=== PATIENT | male | born 1930 ===

== ENCOUNTER 2016-10-08 09:00 | Day surgery (SDC) | payer OTHER ==
[2016-10-08] MEDS ORDERED: Midazolam 2 MG/2 ML VIAL ONE (15:23)
--- NOTE | 2016-10-08 16:34 | CATH ---
APPROVED REPORT Procedure(s) performed: Left Heart Catheterization Left Ventriculogram Selective Right and Left Coronary Angiography Right Iliac and femoral artery angio Angioseal deployment HISTORY The patient is a 86 year-old male with a history of : diabetes mellitus with oral and insulin treatment, hypertension, dyslipidemia, family history of premature CAD. INDICATION The indication(s) include : positive stress test, murmur, chest pain, abnormal ECG, peripheral edema, dyspnea, valvular heart disease. CASE TECHNIQUE The patient was brought electively to the Cardiac Catheterization Laboratory in a fasting state and was prepped and draped in a sterile manner. The right femoral groin was infiltrated with 2% Lidocaine subcutaneous anesthesia. A 6 maldivian sheath was inserted into the right femoral artery without difficulty. Coronary angiography was performed using coronary diagnostic catheters. The left coronary system was accessed and visualized with a Diagnostic catheter. The right coronary system was accessed and visualized with a Diagnostic catheter. The left ventricle was accessed and visualized with a Diagnostic catheter. Left ventricular/Aortic Valve gradient assessed on pullback. Left ventriculogram was performed in MIX projection. Pre-demployment femoral angiogram was performed . Closure device was deployed with a Fr Angioseal without any complications. The patient tolerated the procedure well and there were no complications associated with the procedure. Vessel Analysis The patient's coronary anatomy is right dominant. The left main coronary artery is a medium size vessel without stenosis. The left main trifurcates to the left anterior descending, circumflex, and ramus. The left anterior descending artery is a medium size vessel with intimal irregularities and without significant stenosis. The first diagonal branch is a small size vessel without stenosis. The second diagonal branch is a small size vessel with stenosis. There is a 50% stenosis in the ostial segment. The circumflex artery is a large size vessel without stenosis. The first obtuse marginal branch is a small size vessel without stenosis. The ramus intermedius artery is a medium size vessel with stenosis. There is a 20% stenosis in the ostial segment. The right coronary artery is a large size vessel with stenosis. There is a 40% stenosis in the proximal segment. The right posterior descending artery is a small size vessel without stenosis. The right posterolateral branch is a large size vessel without stenosis. Left Ventricle The left ventricle is normal in size with normal contractility. The left ventricular ejection fraction is estimated to be 75%. The left ventricular end diastolic pressure is 17 mmHg. There was no gradient across the aortic valve upon pullback. 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 NORMAL EF MIN ELEVATED LVEDP NO EVIDENCE OF MILD MR Recommendations Aggressive Medical Therapy Weight Loss Reduction ProgramMedical Therapy
[2016-10-08 16:38] VITALS: BMI 32.8
[2016-10-08] MEDS ORDERED: Sodium Chloride 0.45% 1,000 ML IV ONE (16:57)
[2016-10-08 18:25] VITALS: BP 124/48; PULSE 64; RESP 12; TEMP 97.4; O2SAT 96
== END 2016-10-08 17:55 | disposition home or self-care (01) ==
LOC: C.CATHLAB 09:00
PROVIDERS: ATTEND Internal Medicine Cardiovascular Disease
DX: I25.10 Atherosclerotic heart disease of native coronary artery without angina pectoris (principal); I34.0 Nonrheumatic mitral (valve) insufficiency; R07.9 Chest pain, unspecified; R60.9 Edema, unspecified; R06.00 Dyspnea, unspecified
CPT/HCPCS: 82948; 93452; J0360; J1644; J2250; J3010; J7030; Q9967

== ENCOUNTER 2016-10-08 09:02 | Day surgery (SDC) | payer OTHER ==
[2016-10-03 10:25] VITALS: BMI 32.9
[2016-10-08] MEDS ORDERED: Lidocaine 4% (Laryng-O-Jet) Kit MM ONE (09:43)
[2016-10-08] MEDS ORDERED: Propofol 10 mg/ml Inj (20 ML) ONE (09:50)
[2016-10-08] MEDS ORDERED: ePHEDrine 50 mg/ml Inj ONE (10:13)
[2016-10-09 12:36] VITALS: RESP 29; O2SAT 93
--- NOTE | 2016-11-02 14:50 | CARD ---
APPROVED REPORT EXAM: Transesophageal echocardiogram with color flow Doppler and Synchronized Cardioversion. INDICATION AORTIC REGURGITATION Aortic Valve AI P 1/2 [id number] Mitral Valve E/A ratio0.0 TDI E/Lateral E'0.0E/Medial E'0.0 Reason For Test : Evaluate aortic valve disease PROCEDURE After obtaining informed consent, patient underwent transesophageal echo in the [facility]. Type of Sedation : Conscious Sedation Sedation was provided by anesthesiologist. Sedation was achieved with intravenously. Transesophageal probe was inserted and advanced into esophagus without difficulty. The PANDA was performed without complications. Throughout the procedure, the blood pressure, pulse oximetry, cardiac rhythm, and rate were monitored. The patient tolerated the procedure without adverse effects. Recovery from conscious sedation was uneventful and vital signs were stable. LEFT VENTRICLE The left ventricle is normal size. There is mild to moderate concentric left ventricular hypertrophy. The left ventricular function is normal. The left ventricular ejection fraction is within the normal range. The Ejection Fraction is 55-60%. There is normal LV segmental wall motion. Tissue Doppler imaging reveals mild left ventricular diastolic dysfunction. No left ventricle thrombus noted on this study. There is no ventricular septal defect visualized. There is no left ventricular aneurysm. There is no mass noted in the left ventricle. RIGHT VENTRICLE The right ventricle is normal size. There is normal right ventricular wall thickness. The right ventricular systolic function is normal. ATRIA The left atrium is mildly dilated. The right atrium is mildly dilated. The interatrial septum is intact with no evidence for an atrial septal defect. AORTIC VALVE The aortic valve is mildly to moderately sclerotic. The aortic valve is tri-cuspid. There is mild to moderate aortic regurgitation. There is no aortic valvular stenosis. There is no aortic valvular vegetation. MITRAL VALVE Mitral annular calcification is borderline. The mitral valve leaflets are thickened. There is no evidence of mitral valve prolapse. There is no mitral valve stenosis. Mitral regurgitation is trace to mild. TRICUSPID VALVE The tricuspid valve is normal in structure. There is trace to mild tricuspid regurgitation. There is no tricuspid valve prolapse or vegetation. There is no tricuspid valve stenosis. PULMONIC VALVE The pulmonary valve is normal in structure. There is no pulmonic valvular regurgitation. There is no pulmonic valvular stenosis. GREAT VESSELS The aortic root is normal in size. The ascending aorta is normal in size. The pulmonary artery is normal. PERICARDIAL EFFUSION There is no pericardial effusion. There is no pleural effusion. <Conclusion> The left ventricular function is normal. The left ventricular ejection fraction is within the normal range. There is mild to moderate aortic regurgitation. The aortic valve is mildly to moderately sclerotic. The aortic valve is tri-cuspid.
== END 2016-10-08 17:55 | disposition home or self-care (01) ==
LOC: C.CATHLAB 09:02
PROVIDERS: ATTEND Internal Medicine Interventional Cardiology
DX: I35.1 Nonrheumatic aortic (valve) insufficiency (principal)
CPT/HCPCS: 93312; J2001; J2704; J3010